=== PATIENT | female | born 1985 | race African-American/Black ===

== ENCOUNTER 2017-03-23 09:04 | Emergency (ER) | payer SELFPAY ==
[2017-03-23 09:16] VITALS: BP 136/66; BMI 38.1
[2017-03-23] MEDS ORDERED: TORADOL 60 MG VIAL IM ONE (09:47)
--- NOTE | 2017-03-23 09:49 | DR.GENAD ---
HPI - PCP Primary Care Physician: NFD - Complaint/Symptoms Chief Complaint Doctors Comments: Patient admits to falling off the steps of a Semi while washing it on yesterday. She reports the her right thigh pain level is 10/10, sharp,made worse with palpation. Chief Complaint:: "Yesterday at work I was washing a semi and I fell off onto my right side. There is a deep throbbing pain in my right hip and a stinging in my back." - Source History Provided: Patient - Mode of Arrival Mode of Arrival: Ambulatory - Timing Onset of Chief Complaint: 03/22/17 PMH - PMH Past Medical History: Yes Past Medical History: Asthma Past Surgical History: No - Family History History of Family Medical Conditions: Yes Family Medical History: Diabetes Mellitus, Cancer, Hypertension - Social History Does patient currently use any type of tobacco product: No Have you used tobacco products in the last 12 months: No Type of Tobacco Use: None Does any household member use tobacco: No Alcohol Use: Occasionally Do you use any recreational Drugs:: No Lives With: Family Lives Where: Home - infectious screening In the last 2 months have you had wt loss of >10#?: NO Have you had fever, night sweats or hemotysis?: No Have you traveled outside the country in the last 6 months?: No Isolation: Standard ROS - Review of Systems Eyes: No Symptoms Reported ENTM: No Symptoms Reported Respiratoy: No Symptoms Reported Cardiovascular: No Symptoms Reported Gastrointestinal/Abdominal: No Symptoms Reported Genitourinary: No Symptoms Reported Neurological: No Symptoms Reported Musculoskeletal: No Symptoms Reported Integumentary: No Symptoms Reported Hematologic/Lymphatic: No Symptoms Reported Endocrine: No Symptoms Reported Psychiatric: No Symptoms Reported All Other Systems: Reviewed and Negative PE - Vital Signs Vitals: Temperature 97.7 F Pulse Rate 80 Respiratory Rate 18 Blood Pressure 136/66 O2 Sat by Pulse Oximetry 98 - General General Appearance: Alert, In No Apparent Distress - Head Head Exam: Normal Inspection, Atraumatic - Eyes Eye exam: Normal Appearance, PERRL, EOMI - ENT ENT Exam: Normal Exam External Ear Exam: Normal External Inspection TM/Canal Exam: Bilateral Normal Nose Exam: Normal Nose Exam Mouth Exam: Normal Inspection Throat Exam: Normal Inspection - Neck Neck Exam: Normal Inspection, Full ROM - Chest Chest Inspection: Normal Inspection - Respiratory Respiratory Exam: Normal Lung Sounds Bilat Respiratory Exam: Bilateral Clear to Auscultation - Cardiovascular Cardiovascular Exam: Regular Rate, Normal Rhythm - Abdominal Exam Abdominal Exam: Normal Inspection Abdominal Tenderness: negative: RUQ, RLQ, LUQ, LLQ, Epigastrium, Suprapubic, Diffuse, Mild, Moderate, Severe, Other - Extremities Extremities Exam: Tenderness (right lateral femur) - Back Back Exam: Normal Inspection - Neurologic Neurological Exam: Alert, Oriented X3, CN II-XII Intact - Psychiatric Psychiatric Exam: Normal Affect - Skin Skin Exam: Warm, Dry, Intact ROR - XRAY XRAY Interpreted by: Radiologist (x ray: Femur: normal alignment. No acute fracture or dislocation. The soft tissues are unremarkable.) - Diagnosis Discharge Problem: No Femur fracture Contusion of right leg Qualifiers: Encounter type: initial encounter Qualified Code(s): S80.11XA - Contusion of right lower leg, initial encounter - Discharge Plan Condition: Stable - Follow ups/Referrals Follow ups/Referrals: NFD,None [Primary Care Provider] - 3 days - Instructions
[2017-03-23] MEDS ORDERED: TORADOL 60 MG VIAL ONE (10:36)
--- NOTE | 2017-03-23 11:18 | RAD ---
HISTORY: Fell off truck, pain mid lateral right thigh Study: Four views of the femur Comparison: None Findings: Normal alignment. No acute fracture or dislocation. The soft tissues are unremarkable. IMPRESSION: 1. No acute osseous abnormality. Reported By:
== END 2017-03-23 11:30 | disposition home or self-care (01) ==
LOC: ER 09:04
DX: S80.11XA Contusion of right lower leg, initial encounter (principal); W10.9XXA Fall (on) (from) unspecified stairs and steps, initial encounter; Y92.69 Other specified industrial and construction area as the place of occurrence of the external cause
CPT/HCPCS: 73552; 96372; 99282; J1885

== ENCOUNTER 2017-08-28 12:10 | Emergency (ER) | payer MEDICAID ==
[2017-08-28 12:18] VITALS: BP 121/66; BMI 36.3
--- NOTE | 2017-08-28 15:16 | DR.GENAD ---
HPI - PCP Primary Care Physician: DR GUZMAN - HPI Comment HPI Comment: PATIENT HAVE INTERMITTENT SUBSTERNAL CHEST PAIN AND EPIGASTRIC PAIN TIMES 2 DAYS. WORSE TODAY. MORE INTENSE AND MORE FREQUENT. NO URI SYMTOMS. NAUSEA BUT NO VOMITING. - Complaint/Symptoms Chief Complaint Doctors Comments: CHEST PAIN TIMES 2 DAYS. Chief Complaint:: PT C/O 2 DAY HISTORY OF INTERMITTENT SUBSTERNAL CHEST PRESSURE , NONRADIATING RATED 2/10. - Nurses notes reviewed Nurses Notes Review: Yes - Source History Provided: Patient - Mode of Arrival Mode of Arrival: Ambulatory - Timing Onset of Chief Complaint: 08/27/17 Came on: Suddenly - Duration Duration: Constant Duration: Days PMH - PMH Past Medical History: Yes Past Medical History: Asthma Past Surgical History: No - Family History History of Family Medical Conditions: Yes Family Medical History: Cancer, Hypertension - Social History Does patient currently use any type of tobacco product: No Have you used tobacco products in the last 12 months: No Type of Tobacco Use: None Does any household member use tobacco: Yes Alcohol Use: Rarely Do you use any recreational Drugs:: No Lives With: Spouse Lives Where: Home - infectious screening In the last 2 months have you had wt loss of >10#?: NO Have you had fever, night sweats or hemotysis?: No Have you traveled outside the country in the last 6 months?: No Isolation: Standard ROS - Review of Systems Constitutional: No Symptoms Reported. negative: Chills, Fever, Weakness, Fatigue Eyes: No Symptoms Reported. negative: Eye Pain, Discharge ENTM: No Symptoms Reported. negative: Ear Pain, Nose Discharge, Nose Congestion , Throat Pain Respiratoy: No Symptoms Reported. negative: Productive Cough, Non-Productive Cough, Short of Breath, Wheezing, Hemoptysis Cardiovascular: Chest Pain Gastrointestinal/Abdominal: Abdominal Pain, Nausea. negative: Constipation, Diarrhea, Vomiting Genitourinary: No Symptoms Reported. negative: Dysuria, Frequency, Hematuria Neurological: No Symptoms Reported Musculoskeletal: No Symptoms Reported Integumentary: No Symptoms Reported Hematologic/Lymphatic: No Symptoms Reported Endocrine: No Symptoms Reported All Other Systems: Reviewed and Negative PE - Vital Signs Vitals: Temperature 97.6 F Pulse Rate 97 Respiratory Rate 22 Blood Pressure 121/66 O2 Sat by Pulse Oximetry 97 - General Limitations: No Limitations General Appearance: Alert - Head Head Exam: Normal Inspection - Eyes Eye exam: Normal Appearance - ENT ENT Exam: Normal External Ear Exam External Ear Exam: Normal External Inspection TM/Canal Exam: Bilateral Normal Nose Exam: Normal Nose Exam Mouth Exam: Normal Inspection Throat Exam: Normal Inspection - Neck Neck Exam: Trachea Midline - Chest Chest Inspection: Symmetric Chest Wall Rise - Respiratory Respiratory Exam: Normal Lung Sounds Bilat Respiratory Exam: Bilateral Clear to Auscultation - Cardiovascular Cardiovascular Exam: Regular Rate, Normal Rhythm, Normal Heart Sounds - Abdominal Exam Abdominal Exam: Normal Bowel Sounds, Soft, Tenderness Abdominal Tenderness: Epigastrium - Extremities Extremities Exam: Normal Inspection - Back Back Exam: Normal Inspection - Neurologic Neurological Exam: Alert, Oriented X3 - Psychiatric Psychiatric Exam: Normal Affect, Normal Mood - Skin Skin Exam: Normal Color MDM - Differential Diagnosis Differential Diagnosis: CHEST PAIN, EPIGASTRIC PAIN. Course - Treatment Treatment: SEE ORDERS. - Education/Counseling Education/Counseling: Patient, Family, Education Educated On: Diagnosis, Needs for Follow Up ROR - Labs Reviewed Laboratory Results Reviewed?: Yes Result Diagrams: 08/28/17 15:23 08/28/17 15:23 Laboratory: WBC 7.0 X10^3/uL (3.6-10.0) 08/28/17 15:23 RBC 4.25 X10^6/uL (3.5-5.4) 08/28/17 15:23 Hgb 12.7 g/dL (12.0-16.0) 08/28/17 15:23 Hct 36.9 % (36.0-47.0) 08/28/17 15:23 MCV 86.9 fL (80.0-100.0) 08/28/17 15:23 MCH 29.9 pg (27.0-34.0) 08/28/17 15:23 MCHC 34.5 g/dL (33.0-35.0) 08/28/17 15:23 RDW 13.5 % (11.6-16.5) 08/28/17 15:23 Plt Count 434 X10^3/uL (150.0-450.0) 08/28/17 15:23 MPV 6.8 fL (7.4-11.0) L 08/28/17 15:23 Neut % (Auto) 53.8 % (42.0-75.0) 08/28/17 15:23 Lymph % (Auto) 36.9 % (21.0-51.0) 08/28/17 15:23 [place] % (Auto) 6.6 % (0.0-13.0) 08/28/17 15:23 Eos % (Auto) 1.8 % (0.9-2.9) 08/28/17 15:23 Baso % (Auto) 0.9 % (0.2-1.0) 08/28/17 15:23 Neut # (Auto) 3.8 x10^3/uL (2.2-4.8) 08/28/17 15:23 Lymph # (Auto) 2.6 X10^3/uL (1.3-2.9) 08/28/17 15: [place] # (Auto) 0.5 x10^3/uL (0.3-0.8) 08/28/17 15: Eos # (Auto) 0.1 x10^3/uL (0.0-0.2) 08/28/17: Baso # (Auto) 0.1 X10^3/uL (0.0-0.1) 08/28/17 15: Absolute Nucleated RBC 0.0 /100WBC 08/28/17 15:23 Sodium 139 mmol/L (136-145) 08/28/17 15: Corrected Sodium TNP 08/28/17 15: Potassium 4.0 mmol/L (3.5-5.1) 08/28/17 15: Chloride 103 mmol/L (98-107) 08/28/17 15: Carbon Dioxide 29.7 mmol/L (21-32) 08/28/17 15:23 BUN 9 mg/dL (7-18) 08/28/17 15:23 Creatinine 0.82 mg/dL (0.55-1.02) 08/28/17 15:23 Est GFR (MDRD) Af Amer > 60 (>60) 08/28/17: Est GFR (MDRD) Non-Af > 60 (>60) 08/28/17 15:23 Glucose 84 mg/dL (65-99) 08/28/17 15: Calcium 8.6 mg/dL (8.5-10.1) 08/28/17 15:23 Corrected Calcium TNP 08/28/17 15:23 Total Bilirubin 0.30 mg/dL (0.2-1.0) 08/28/17 15:23 AST 16 Units/L (15-37) 08/28/17 15:23 ALT 28 Units/L (12-78) 08/28/17 15:23 Alkaline Phosphatase 78 Units/L (46-116) 08/28/17 15:23 Total Protein 8.9 g/dL (6.4-8.2) H 08/28/17 15:23 Albumin 3.7 g/dL (3.4-5.0) 08/28/17 15:23 Globulin 5.2 g/dL (2.5-4.5) H 08/28/17 15:23 Albumin/Globulin Ratio 0.7 Ratio (1.1-2.1) L 08/28/17 15:23 Amylase 72 Units/L (25-115) 08/28/17 15:23 Lipase 122 Units/L (73-393) 08/28/17 15:23 H. pylori IgG Antibody Positive (NEGATIVE) A 08/28/17 15:23 - XRAY XRAY Interpreted by: Radiologist XRAY Findings: REPORT DICUSS WITH PATIENT. - EKG Rhythm: NSR - Diagnosis Discharge Problem: Helicobacter pylori ab+ Chest pain Qualifiers: Chest pain type: unspecified Qualified Code(s): R07.9 - Chest pain, unspecified Abdominal pain Qualifiers: Abdominal location: epigastric Qualified Code(s): R10.13 - Epigastric pain - Discharge Plan Disposition: 01 HOME, SELF-CARE Condition: Stable Prescriptions: Lansoprazole/Amoxiciln/Clarith [PrevPac 14-day pack] 1 dose PO BID #1 pkg - Follow ups/Referrals Follow ups/Referrals: BRIANA GUZMAN [Primary Care Provider] - 08/30/17 - Instructions Instructions: Chest Wall Pain, [id number], Abdominal Pain, Adult, Easy-to- Read, Helicobacter Pylori Antibodies Test Additional Instructions: RETURN TO ED IF WORSE.
--- NOTE | 2017-08-28 15:35 | RAD ---
HISTORY: Chest pain Study: AP portable chest Comparison: None Findings: The heart, lungs, mediastinum and bony structures are normal for the patient's age. IMPRESSION: 1. No radiographic evidence of acute cardiopulmonary disease. Reported By:
[2017-08-28 15:36] LABS: BASOPHILS # (AUTO) 0.1 X10^3/uL (0.0-0.1); BASOPHILS % (AUTO) 0.9 % (0.2-1.0); EOSINOPHILS # (AUTO) 0.1 x10^3/uL (0.0-0.2); EOSINOPHILS % (AUTO) 1.8 % (0.9-2.9); HEMATOCRIT 36.9 % (36.0-47.0); HEMOGLOBIN 12.7 g/dL (12.0-16.0); LYMPHOCYTES # (AUTO) 2.6 X10^3/uL (1.3-2.9); LYMPHOCYTES % (AUTO) 36.9 % (21.0-51.0); MEAN CORPUSCULAR HEMOGLOBIN 29.9 pg (27.0-34.0); MEAN CORPUSCULAR HGB CONC 34.5 g/dL (33.0-35.0); MEAN CORPUSCULAR VOLUME 86.9 fL (80.0-100.0); MEAN PLATELET VOLUME 6.8 fL (7.4-11.0); MONOCYTES # (AUTO) 0.5 x10^3/uL (0.3-0.8); MONOCYTES % (AUTO) 6.6 % (0.0-13.0); NEUTROPHILS # (AUTO) 3.8 x10^3/uL (2.2-4.8); NEUTROPHILS % (AUTO) 53.8 % (42.0-75.0); PLATELET COUNT 434 X10^3/uL (150.0-450.0); RED BLOOD COUNT 4.25 X10^6/uL (3.5-5.4); RED CELL DISTRIBUTION WIDTH 13.5 % (11.6-16.5)
[2017-08-28 15:49] LABS: ALANINE AMINOTRANSFERASE 28 Units/L (12-78); ALBUMIN 3.7 g/dL (3.4-5.0); ALKALINE PHOSPHATASE 78 Units/L (46-116); AMYLASE 72 Units/L (25-115); ASPARTATE AMINO TRANSFERASE 16 Units/L (15-37); BLOOD UREA NITROGEN 9 mg/dL (7-18); CALCIUM 8.6 mg/dL (8.5-10.1); CARBON DIOXIDE 29.7 mmol/L (21-32); CHLORIDE 103 mmol/L (98-107); CREATININE 0.82 mg/dL (0.55-1.02); LIPASE 122 Units/L (73-393); SODIUM 139 mmol/L (136-145); TOTAL PROTEIN 8.9 g/dL (6.4-8.2); eGFR BLACK RACES > 60 (>60); eGFR NON BLACK RACES > 60 (>60)
== END 2017-08-28 16:46 | disposition home or self-care (01) ==
LOC: ER 12:21
DX: R07.89 Other chest pain (principal); R10.13 Epigastric pain; B96.81 Helicobacter pylori [H. pylori] as the cause of diseases classified elsewhere
CPT/HCPCS: 36415; 71045; 80053; 82150; 83690; 85025; 86677; 93005; 93010; 99282; 99283

== ENCOUNTER 2017-09-16 12:11 | Emergency (ER) | payer MEDICAID, OTHER ==
[2017-09-16 12:19] VITALS: BP 130/94; BMI 36.3
--- NOTE | 2017-09-16 12:46 | DR.EARACHE ---
HPI - Time Seen Time seen: 12:35 - PCP Primary Care Physician: MEGAN BOWERS - Complaint/Symptoms Chief Complaint Doctor Comments: Patient presents with complaint of popping of the righe ear when swallowing. She is being treated for allergic rhinitis and H Pylori gastritis. Chief Complaint:: PT C/O RIGHT EAR PAIN SINCE LAST WEEK AND SHE C/O DRINKING COFFFEE THIS AM AND FEELING LIKE THE LIQUID WENT INTO HER EAR, PT STATES IT HASA FULL FEELING AND SOUND IS MUFFLED ,,BR Self Treatment fo Chief Complaint: PEROXIDE , - Source History Provided: Patient - Mode of arrival Mode of Arrival: Ambulatory - Timing Onset of Chief Complaint: 09/09/17 PMH - PMH Past Medical History: Yes Past Medical History: Asthma Past Surgical History: No - Family History History of Family Medical Conditions: No Family Medical History: Cancer, Hypertension - Social History Does patient currently use any type of tobacco product: No Have you used tobacco products in the last 12 months: No Type of Tobacco Use: None Does any household member use tobacco: No Alcohol Use: None Do you use any recreational Drugs:: No Lives With: Family Lives Where: Home - infectious screening In the last 2 months have you had wt loss of >10#?: NO Have you had fever, night sweats or hemotysis?: No Have you traveled outside the country in the last 6 months?: No Isolation: Standard ROS - Review of Systems Eyes: No Symptoms Reported ENTM: No Symptoms Reported Respiratoy: No Symptoms Reported Cardiovascular: No Symptoms Reported Gastrointestinal/Abdominal: No Symptoms Reported Genitourinary: No Symptoms Reported Neurological: No Symptoms Reported Musculoskeletal: No Symptoms Reported Integumentary: No Symptoms Reported Hematologic/Lymphatic: No Symptoms Reported Endocrine: No Symptoms Reported Psychiatric: No Symptoms Reported All Other Systems: Reviewed and Negative PE - Vitals Vitals: Temperature 97.7 F Pulse Rate 95 Respiratory Rate 18 Blood Pressure 130/94 O2 Sat by Pulse Oximetry 98 - General General Appearance: Alert, In No Apparent Distress - Head Head Exam: Normal Inspection, Atraumatic - Eyes Eye exam: Normal Appearance, PERRL, EOMI - ENT ENT Exam: Normal Exam, Normal Oropharynx External Ear Exam: Normal External Inspection TM/Canal Exam: Bilateral Normal Nose Exam: Other (ignacio;ateral edema of turbinates,erythematous bilaterally) Nasal Speculum Exam: Bilateral Normal Mouth Exam: Normal Inspection Teeth Exam: Normal Inspection Throat Exam: Normal Inspection - Neck Neck Exam Focused: Normal Inspection - Chest Chest Inspection: Normal Inspection, Symmetric Chest Wall Rise - Respiratory Respiratory Exam: Normal Lung Sounds Bilat Respiratory Exam: Bilateral Clear to Auscultation - Cardiovascular Cardiovascular Exam: Regular Rate, Normal Rhythm - Abdominal Exam Abdominal Exam: Normal Inspection, Normal Bowel Sounds Abdominal Tenderness: negative: RUQ, RLQ, LUQ, LLQ, Epigastrium, Suprapubic, Diffuse, Mild, Moderate, Severe, Other - Extremities Extremities Exam: Normal Inspection - Back Back Exam: Normal Inspection, Full ROM - Neurological Neurological Exam: Alert, Oriented X3, CN II-XII Intact - Skin Skin Exam: Warm, Dry, Intact - Diagnosis Discharge Problem: Eustachian tube dysfunction Qualifiers: Laterality: right Qualified Code(s): H69.81 - Other specified disorders of Eustachian tube, right ear - Discharge Plan Condition: Stable - Follow ups/Referrals Follow ups/Referrals: BRIANA GUZMAN [Primary Care Provider] - 3 days - Instructions
== END 2017-09-16 12:51 | disposition home or self-care (01) ==
LOC: ER 12:21
DX: H69.81 Other specified disorders of Eustachian tube, right ear (principal)
CPT/HCPCS: 99281; 99283